=== PATIENT | male | born 1995 | race Caucasian/White ===

== ENCOUNTER 2021-07-01 08:48 | Emergency (ER) | payer OTHER ==
[~2021-07-01] VITALS: Ht 182.9 cm; Wt 98.4 kg
[2021-07-01 08:49] VITALS: BP 131/69
== END 2021-07-01 13:17 | disposition home or self-care (01) ==
LOC: M ED 08:48
DX: M76.811 Anterior tibial syndrome, right leg (principal); M72.2 Plantar fascial fibromatosis